=== PATIENT | female | born 1970 | race Caucasian/White ===

== ENCOUNTER → 2022-04-08 15:44 | Outpatient (CLI) | payer OTHER, SELFPAY ==
--- NOTE | 2022-04-08 | DI.US.S_ITS ---
PROCEDURE: US ABDOMEN LIMITED INDICATIONS: Abnormal results of liver function studies TECHNIQUE: Real-time focused scanning was performed of the abdomen, with image documentation. COMPARISON: None. FINDINGS: Liver is diffusely increased in echogenicity. No focal hepatic abnormalities identified. Normal hepatic size. Left hepatic lobe cyst measuring 11 mm. Multiple gallstones present. No gallbladder wall thickening or pericholecystic fluid. Negative sonographic Gomez sign. No biliary dilatation. IMPRESSION: 1. Increased hepatic echogenicity noted possibly related to hepatic steatosis but other sources of hepatocellular disease cannot be excluded. Recommend clinical correlation. 2. Cholelithiasis without acute cholecystitis. Dictated by: Omero Phillips RREugenio Interpreted: Fabián Gonzalez MD on 04/08/2022 at 16:15 Transcribed by: BRI on 04/08/2022 at 16:15 Approved by: Fabián Gonzalez M.D. on 04/09/2022 at 8:47
== END ==
PROVIDERS: PCP Nurse Practitioner Family; Referring Provider Nurse Practitioner Family; Visit Provider Nurse Practitioner Family
DX: R94.5 Abnormal results of liver function studies (principal); K80.20 Calculus of gallbladder without cholecystitis without obstruction
CPT/HCPCS: 76705